=== PATIENT | male | born 1960 | race Hispanic/Latino ===

== ENCOUNTER → 2018-09-12 | Outpatient (CLI) | payer MEDICARE | END | disposition home or self-care (01) | LOC: RAH 10:49 | PROVIDERS: ATTEND Urology | DX: N43.3 Hydrocele, unspecified (principal) | CPT/HCPCS: 76870 ==

== ENCOUNTER 2019-10-13 17:24 | Inpatient (IN) | payer MEDICARE ==
[~2019-10-13] VITALS: Ht 167.6 cm; Wt 109.5 kg
[2019-10-13 17:52] LABS: ABG BASE EXCESS 7.5 mmol/L (-2.0-3.0); ABG HCO3 34.1 mmol/L (21.0-28.0); ABG OXYGEN SATURATION 98.1 % (95.0-99.0); ABG PCO2 55 mmHg (35-48)
[2019-10-13] MEDS ORDERED: CEFTRIAXONE SODIUM 1 GM ONE (18:12)
[2019-10-13] MEDS ORDERED: SODIUM CHLORIDE 0.9% 1000ML 1,000 ML IV ONE (18:12)
[2019-10-13] MEDS ORDERED: SODIUM CHLORIDE 0.9% 100 ML IV ONE (18:12)
[2019-10-13] MEDS ORDERED: ACETAMINOPHEN 325 MG TAB ONE (18:30)
[2019-10-13 18:36] LABS: BASOPHILS % (AUTO) 0.2 % (0.0-5.0); HEMATOCRIT 47.6 % (42-54); LYMPHOCYTES % (AUTO) 17.9 % (21.0-51.0); MEAN CORPUSCULAR HEMOGLOBIN 30.1 pg (27.0-33.0); MEAN CORPUSCULAR HGB CONC 33.6 g/dL (32.0-36.0); MEAN CORPUSCULAR VOLUME 89.5 fL (79-99); NEUTROPHILS % (AUTO) 71.7 % (40.0-77.0); PLATELET COUNT (AUTO) 176 K/uL (130-400); RED BLOOD CELL COUNT(AUTO) 5.32 MIL/uL (4.50-6.20); RED CELL DISTRIBUTION WIDTH 12.6 % (11.0-15.5); WHITE BLOOD COUNT (AUTO) 4.7 K/uL (4.8-10.8)
[2019-10-13 18:42] LABS: POTASSIUM 3.6 mmol/L (3.5-5.1)
[2019-10-13 18:46] LABS: ALBUMIN 3.1 g/dL (3.5-5.0); BILIRUBIN,TOTAL 0.9 mg/dL (0.2-1.0); INR 1.1 (0.85-1.15); PARTIAL THROMBOPLASTIN TIME 30.1 SEC (26.3-35.5); PROTHROMBIN TIME 11.8 SEC (9.6-11.6); TOTAL PROTEIN, SERUM 7.8 g/dL (6.0-8.3)
[2019-10-13 19:02] LABS: B-TYPE NATRIURETIC PEPTIDE < 5 pg/mL (0-100)
[2019-10-13 19:03] LABS: FERRITIN 302 ng/mL (30-400)
[2019-10-13] MEDS: SODIUM CHLORIDE IV SCH ×2 (22:23)
[2019-10-13] MEDS ORDERED: IOHEXOL-350 75 ML VIAL IV ONE (22:29)
[2019-10-13] MEDS ORDERED: MORPHINE SULFATE 4 MG/1ML SYG IV PRN (22:30)
[2019-10-13] MEDS ORDERED: ONDANSETRON HCL 4 MG/2 ML VIAL IV PRN (22:30)
[2019-10-13] MEDS ORDERED: ACETAMINOPHEN 325 MG TAB PO PRN ×2 (22:30)
[2019-10-13] MEDS ORDERED: SODIUM CHLORIDE 0.9% IV SCH (22:30)
[2019-10-13] MEDS ORDERED: LACTULOSE 20 GM/30 ML UDCUP PO PRN (22:30)
[2019-10-13] MEDS ORDERED: GUAIFENESIN-DM 200/20 MG 10 ML PO PRN (22:30)
[2019-10-13] MEDS ORDERED: ZOLPIDEM TARTRATE 5 MG TAB PO PRN (22:30)
[2019-10-13] MEDS ORDERED: MAG HYDROX/AL HYDROX/SIMETH ES 30 ML SUSP UDCUP PO PRN (22:30)
[2019-10-13] MEDS ORDERED: DIPHENHYDRAMINE HCL 25 MG CAPSULE PO PRN (22:30)
[2019-10-13] MEDS ORDERED: DEXAMETHASONE IV SCH (22:30)
[2019-10-13] MEDS ORDERED: ERGOCALCIFEROL (VITAMIN D2) 50,000 UNIT CAPSULE PO ONE (22:30)
[2019-10-13] MEDS ORDERED: ASCORBIC ACID 500 MG TAB ONE (23:08)
[2019-10-13] MEDS ORDERED: ERGOCALCIFEROL (VITAMIN D2) 50,000 UNIT CAPSULE ONE (23:08)
[2019-10-13] MEDS ORDERED: DEXAMETHASONE SOD PHOSPHATE 10MG/ML 1ML VIAL ONE (23:08)
[2019-10-13] MEDS ORDERED: BENZONATATE 100 MG CAPSULE PO ONE (23:09)
[2019-10-13] MEDS ORDERED: CEFEPIME HCL 2 GM VIAL ONE (23:09)
[2019-10-13] MEDS ORDERED: ACETYLCYSTEINE 600 MG CAPSULE ONE (23:09)
[2019-10-13] MEDS ORDERED: FAMOTIDINE/PF 20 MG/2 ML VIAL IV ONE (23:10)
[2019-10-13] MEDS ORDERED: AZITHROMYCIN 500MG+NS 250ML 250 ML IV ONE (23:10)
[2019-10-13] MEDS ORDERED: ZINC SULFATE 220 CAPSULE ONE (23:10)
[2019-10-13] MEDS ORDERED: ENOXAPARIN SODIUM 40 MG/0.4 ML SYRINGE SQ ONE (23:10)
[2019-10-13 23:53] LABS: BASOPHILS % (AUTO) 0.3 % (0.0-5.0); HEMATOCRIT 44.7 % (42-54); LYMPHOCYTES % (AUTO) 25.7 % (21.0-51.0); MEAN CORPUSCULAR HEMOGLOBIN 30.5 pg (27.0-33.0); MEAN CORPUSCULAR HGB CONC 33.1 g/dL (32.0-36.0); MONOCYTES % (AUTO) 8.4 % (3.0-13.0); NEUTROPHILS % (AUTO) 65.6 % (40.0-77.0); PLATELET COUNT (AUTO) 142 K/uL (130-400); RED BLOOD CELL COUNT(AUTO) 4.86 MIL/uL (4.50-6.20); RED CELL DISTRIBUTION WIDTH 12.7 % (11.0-15.5); WHITE BLOOD COUNT (AUTO) 3.9 K/uL (4.8-10.8)
[2019-10-14] VITALS (8 sets, daily range): BP systolic 116–152; BP diastolic 54–85
[2019-10-14 00:06] LABS: ALBUMIN 2.6 g/dL (3.5-5.0); CARBON DIOXIDE 37 mmol/L (21-32); CHLORIDE 102 mmol/L (101-111); CREATININE 1.1 mg/dL (0.5-1.5); GLOMERULAR FILTR. RATE CALC 73 mL/min (>60); GLUCOSE,RANDOM 136 mg/dL (70-105); POTASSIUM 3.4 mmol/L (3.5-5.1); SODIUM SERUM 142 mmol/L (136-145); UREA NITROGEN, BLOOD 18 mg/dL (7-18)
[2019-10-14 00:26] LABS: ALANINE AMINOTRANSFERASE 28 U/L (12-78); ASPARTATE AMINOTRANSFERASE 33 U/L (10-37); BILIRUBIN,TOTAL 0.7 mg/dL (0.2-1.0); CREATINE KINASE, TOTAL 176 U/L (21-232); MYOGLOBIN 199 ng/mL (10-92); PHOSPHORUS 2.9 mg/dL (2.5-4.9); TOTAL PROTEIN, SERUM 6.7 g/dL (6.0-8.3); TROPONIN I < 0.04 ng/mL (0.00-0.06)
--- NOTE | 2019-10-14 02:36 | NUR ---
Admitted to Room 417 Patient arrived to floor via stretcher. No distress noted. Nurse reported that his sats desated, as she was bringing to the floor (85%), so she increased oxygen from 2 liters to 4 liters via nasal cannula. Oxygen sats increased to 94%. Patient was transported to bed from stretcher and IV ABT and fluids infusing without difficulty. Denies any pain or discomfort at this time. Orientated to room and bed controls. Tele monitor applied per orders.
[2019-10-14] MEDS ORDERED: PHARMACY COMMUNICATION MISC SCH (05:00)
[2019-10-14] MEDS: INSULIN LISPRO 100 UNIT/ML 3ML SQ SCH ×4 (06:30→21:07)
[2019-10-14 07:40] LABS: HEMATOCRIT 43.5 % (42-54); MEAN CORPUSCULAR HEMOGLOBIN 30.4 pg (27.0-33.0); MEAN CORPUSCULAR HGB CONC 33.6 g/dL (32.0-36.0); MEAN CORPUSCULAR VOLUME 90.6 fL (79-99); MONOCYTES % (AUTO) 1.8 % (3.0-13.0); NEUTROPHILS % (AUTO) 84.8 % (40.0-77.0); PLATELET COUNT (AUTO) 143 K/uL (130-400); RED CELL DISTRIBUTION WIDTH 12.6 % (11.0-15.5); WHITE BLOOD COUNT (AUTO) 2.8 K/uL (4.8-10.8)
[2019-10-14] MEDS ORDERED: DEXAMETHASONE 10MG/ML 1ML VIAL 10 MG in SODIUM CHLORIDE 0.9% 50 ML IV SCH (07:45)
[2019-10-14 08:17] LABS: ALANINE AMINOTRANSFERASE 21 U/L (12-78); ALBUMIN 2.6 g/dL (3.5-5.0); ASPARTATE AMINOTRANSFERASE 32 U/L (10-37); BILIRUBIN,TOTAL 0.6 mg/dL (0.2-1.0); CARBON DIOXIDE 32 mmol/L (21-32); CHLORIDE 105 mmol/L (101-111); CREATININE 0.9 mg/dL (0.5-1.5); GLOMERULAR FILTR. RATE CALC 91 mL/min (>60); GLUCOSE,RANDOM 218 mg/dL (70-105); LACTATE DEHYDROGENASE 179 U/L (81-234); PHOSPHORUS 2.7 mg/dL (2.5-4.9); POTASSIUM 4.2 mmol/L (3.5-5.1); SODIUM SERUM 141 mmol/L (136-145); TOTAL PROTEIN, SERUM 6.6 g/dL (6.0-8.3); UREA NITROGEN, BLOOD 17 mg/dL (7-18)
[2019-10-14 08:23] LABS: BAND NEUTROPHILS % (MANUAL) 1 % (0-2); LYMPHOCYTES % (MANUAL) 10 % (22-44); MAN.DIFF COMMENT-IMPRESSION MANUAL DIFFERENTIAL; PLATELET MORPHOLOGY COMMENT ADEQUATE; SEGMENTED NEUTROPHILS % 89 % (40-70)
[2019-10-14] MEDS: ZINC SULFATE 220 CAPSULE PO SCH (09:00)
[2019-10-14] MEDS: ENOXAPARIN SODIUM 40 MG/0.4 ML SYRINGE SQ SCH (09:00)
[2019-10-14] MEDS: ACETYLCYSTEINE 600 MG CAPSULE PO SCH ×2 (09:00→20:36)
[2019-10-14] MEDS: ASCORBIC ACID 500 MG TAB PO SCH (09:00)
[2019-10-14] MEDS: BENZONATATE 100 MG CAPSULE PO SCH ×3 (09:00→20:36)
[2019-10-14 09:09] LABS: CREATINE KINASE, TOTAL 184 U/L (21-232); MYOGLOBIN 126 ng/mL (10-92); TROPONIN I < 0.04 ng/mL (0.00-0.06)
[2019-10-14] MEDS: FAMOTIDINE/PF 20 MG/2 ML VIAL IV SCH ×2 (10:58→20:36)
[2019-10-14] MEDS: CEFEPIME HCL 2 GM VIAL IVP SCH ×2 (11:03→23:52)
[2019-10-14] MEDS: SODIUM CHLORIDE IV SCH ×2 (11:03)
[2019-10-14] MEDS: PHARMACY COMMUNICATION MISC SCH ×4 (13:16→23:58)
[2019-10-14] MEDS ORDERED: COMPOUND IV REFRIGERATED 1 EACH IVSOLN MISC PRN (13:30)
[2019-10-14] MEDS ORDERED: REMDESIVIR (EUA) 520 200 MG in SODIUM CHLORIDE 0.9% 250 ML IV SCH (14:00)
[2019-10-14] MEDS ORDERED: REMDESIVIR (EUA) 520 200 MG in SODIUM CHLORIDE 0.9% 250 ML IV ONE (14:00)
[2019-10-14 15:10] LABS: CREATINE KINASE, TOTAL 151 U/L (21-232)
[2019-10-14] MEDS: SODIUM CHLORIDE 0.9% 1000ML 1,000 ML IV SCH ×2 (15:42→23:56)
[2019-10-14 15:52] LABS: MYOGLOBIN 122 ng/mL (10-92); TROPONIN I < 0.04 ng/mL (0.00-0.06)
--- NOTE | 2019-10-14 16:25 | NUR ---
INITIAL SW spoke to patient's spouse, Charlee Lazaro. Patient lives with spouse. He has no home services or DME. Patient is able to complete ADL's independently and drives. 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 PCP is Dr. Eren Garsia. Pharmacy is [facility] in [facility]. DCP is home. Addendum: 10/14/19 at 1627 by GWEN MCGRATH SS Amended: Links added.
[2019-10-14] MEDS: AZITHROMYCIN 500MG+NS 250ML 250 ML IV SCH (20:35)
--- NOTE | 2019-10-15 00:01 | NUR ---
IV infiltrated in left Forearm Patient was c/o his IV site burning. Assessed and it was red and tender to left forearm. Removed #18g IV needle that was intact. No further concerns at this time. He continues to have a #20g to right AC area, flushing well and without any s/sx of infiltration.
[2019-10-15] MEDS: PHARMACY COMMUNICATION MISC SCH (03:45)
[2019-10-15] MEDS: SODIUM CHLORIDE 0.9% 1000ML 1,000 ML IV SCH ×3 (04:37→18:25)
[2019-10-15 04:45] VITALS: BP 128/67
[2019-10-15] MEDS: INSULIN LISPRO 100 UNIT/ML 3ML SQ SCH ×5 (06:15→22:45)
[2019-10-15 06:49] LABS: HEMATOCRIT 41.4 % (42-54); LYMPHOCYTES % (AUTO) 11.3 % (21.0-51.0); MEAN CORPUSCULAR HEMOGLOBIN 30.2 pg (27.0-33.0); MEAN CORPUSCULAR HGB CONC 33.6 g/dL (32.0-36.0); MEAN CORPUSCULAR VOLUME 89.8 fL (79-99); MONOCYTES % (AUTO) 5.2 % (3.0-13.0); NEUTROPHILS % (AUTO) 83.1 % (40.0-77.0); PLATELET COUNT (AUTO) 161 K/uL (130-400); RED BLOOD CELL COUNT(AUTO) 4.61 MIL/uL (4.50-6.20); RED CELL DISTRIBUTION WIDTH 12.5 % (11.0-15.5); WHITE BLOOD COUNT (AUTO) 5.4 K/uL (4.8-10.8)
[2019-10-15 08:00] VITALS: BP 135/78
[2019-10-15 08:03] LABS: LACTATE DEHYDROGENASE 166 U/L (81-234)
[2019-10-15] MEDS: ENOXAPARIN SODIUM 40 MG/0.4 ML SYRINGE SQ SCH (09:16)
[2019-10-15] MEDS: ZINC SULFATE 220 CAPSULE PO SCH (09:16)
[2019-10-15] MEDS: BENZONATATE 100 MG CAPSULE PO SCH ×3 (09:16→20:22)
[2019-10-15] MEDS: FAMOTIDINE/PF 20 MG/2 ML VIAL IV SCH ×2 (09:16→20:22)
[2019-10-15] MEDS: ACETYLCYSTEINE 600 MG CAPSULE PO SCH ×2 (09:16→20:22)
[2019-10-15] MEDS: CEFEPIME HCL 2 GM VIAL IVP SCH ×2 (09:16→22:45)
[2019-10-15] MEDS: ASCORBIC ACID 500 MG TAB PO SCH (09:17)
[2019-10-15 11:30] VITALS: BP 133/76
[2019-10-15 13:09] LABS: ALBUMIN 2.4 g/dL (3.5-5.0); BILIRUBIN,TOTAL 0.4 mg/dL (0.2-1.0); CREATININE 0.9 mg/dL (0.5-1.5); MAGNESIUM 2.3 mg/dL (1.80-2.40); PHOSPHORUS 2.2 mg/dL (2.5-4.9); TOTAL PROTEIN, SERUM 6.3 g/dL (6.0-8.3)
[2019-10-15] MEDS ORDERED: PHARMACY COMMUNICATION MISC SCH (15:00)
[2019-10-15] MEDS: REMDESIVIR (EUA) 520 100 MG in SODIUM CHLORIDE 0.9% 250 ML IV SCH (15:00)
[2019-10-15 15:30] VITALS: BP 130/80
[2019-10-15] MEDS: AZITHROMYCIN 500MG+NS 250ML 250 ML IV SCH (20:22)
[2019-10-15 21:39] VITALS: BP 153/70
[2019-10-16] MEDS: SODIUM CHLORIDE 0.9% 1000ML 1,000 ML IV SCH ×2 (01:05→08:05)
--- NOTE | 2019-10-16 03:36 | NUR ---
Patient accidentally pulled IV out, while sleeping Patient called me to his room to assess his IV. Noted blood on bed covers and gown. IV, #20g catheter, was out of the vein of his right AC. Removed and cleaned site. Restarted another #20g IV in patient's right hand. Tolerated it well. No further c/o's or concerns at this time. Continues to be receiving his NS at 150mls/hr.
[2019-10-16 04:30] VITALS: BP 142/87
[2019-10-16] MEDS: PHARMACY COMMUNICATION MISC SCH (05:43)
[2019-10-16 06:26] LABS: LACTATE DEHYDROGENASE 181 U/L (81-234)
[2019-10-16] MEDS: INSULIN LISPRO 100 UNIT/ML 3ML SQ SCH ×4 (07:30→22:25)
[2019-10-16 08:00] VITALS: BP 148/78
[2019-10-16] MEDS: CEFEPIME HCL 2 GM VIAL IVP SCH (10:18)
[2019-10-16] MEDS: ASCORBIC ACID 500 MG TAB PO SCH (10:19)
[2019-10-16] MEDS: ACETYLCYSTEINE 600 MG CAPSULE PO SCH ×2 (10:19→20:09)
[2019-10-16] MEDS: FAMOTIDINE/PF 20 MG/2 ML VIAL IV SCH ×2 (10:19→20:09)
[2019-10-16] MEDS: DEXAMETHASONE SOD PHOSPHATE 10MG/ML 1ML VIAL IV SCH (10:19)
[2019-10-16] MEDS: ZINC SULFATE 220 CAPSULE PO SCH (10:19)
[2019-10-16] MEDS: TAMSULOSIN HCL 0.4 MG CAP.ER.24H PO SCH (10:19)
[2019-10-16] MEDS: BENZONATATE 100 MG CAPSULE PO SCH ×3 (10:19→20:09)
[2019-10-16] MEDS: ENOXAPARIN SODIUM 40 MG/0.4 ML SYRINGE SQ SCH (10:20)
[2019-10-16 11:28] LABS: ALBUMIN 2.6 g/dL (3.5-5.0); BILIRUBIN,DIRECT 0.1 mg/dL (0.0-0.3); BILIRUBIN,TOTAL 0.4 mg/dL (0.2-1.0); CREATININE 0.9 mg/dL (0.5-1.5); POTASSIUM 3.6 mmol/L (3.5-5.1); TOTAL PROTEIN, SERUM 6.3 g/dL (6.0-8.3)
[2019-10-16 11:30] VITALS: BP 175/86
[2019-10-16] MEDS ORDERED: LOPERAMIDE HCL 2 MG CAP PO SCH (12:00)
[2019-10-16] MEDS ORDERED: LOPERAMIDE HCL 2 MG CAP PO PRN (12:00)
[2019-10-16] MEDS: REMDESIVIR (EUA) 520 100 MG in SODIUM CHLORIDE 0.9% 250 ML IV SCH (13:30)
[2019-10-16 15:30] VITALS: BP 173/99
[2019-10-16] MEDS: HYDRALAZINE HCL 20 MG/ML VIAL IV PRN (17:25)
[2019-10-16] MEDS ORDERED: HYDRALAZINE HCL 20 MG/ML VIAL IV PRN (17:45)
[2019-10-16 21:40] VITALS: BP 152/100
--- NOTE | 2019-10-16 22:48 | NUR ---
Urine sample collected from patient Patient was able to give me a clean catch urine sample and it was sent to the lab. Denies and problems with burning at this time. Did say that he has an enlarged prostate and it was hard to urinate a lot at a time.
[2019-10-16 22:50] LABS: APPEARANCE,URINE Clear (CLEAR); BILIRUBIN,URINE Negative (NEGATIVE); COLOR,URINE Yellow (YELLOW); GLUCOSE, URINE (UA) 500 mg/dL (NEGATIVE); KETONES,URINE Negative (NEGATIVE); LEUKOCYTE ESTERASE ,URINE Negative (NEGATIVE); NITRATE,URINE Negative (NEGATIVE); OCCULT BLOOD,URINE Negative (NEGATIVE); PROTEIN,URINE Trace mg/dL (NEGATIVE)
[2019-10-16 23:01] LABS: BACTERIA,URINE Rare /HPF (None Seen); MUCUS,URINE Few LPF (None Seen); SQUAMOUS EPITHELIAL CELL,UR 0-2 /HPF (0-2); WBC,URINE 0-1 /HPF (0-1)
[2019-10-17 00:22] VITALS: BP 153/92
--- NOTE | 2019-10-17 03:23 | NUR ---
Patient pulled out IV, while in the bathroom Patient reported that he pulled out his IV when he was in the bathroom. When I entered the room, he was back in bed with a wash cloth around his right hand and it was bloody. The IV catheter tip was out of the vein, intact, and was discarded in the sharp bin. I replaced a new 20g needle in the patient's right antecubital area. Patent and flushes well with good blood return.
[2019-10-17 04:05] VITALS: BP 155/87
[2019-10-17 05:18] LABS: HEMATOCRIT 42.3 % (42-54); MEAN CORPUSCULAR HEMOGLOBIN 29.3 pg (27.0-33.0); MEAN CORPUSCULAR HGB CONC 33.3 g/dL (32.0-36.0); MEAN CORPUSCULAR VOLUME 87.9 fL (79-99); MONOCYTES % (AUTO) 7.8 % (3.0-13.0); NEUTROPHILS % (AUTO) 79.8 % (40.0-77.0); PLATELET COUNT (AUTO) 178 K/uL (130-400); RED BLOOD CELL COUNT(AUTO) 4.81 MIL/uL (4.50-6.20); RED CELL DISTRIBUTION WIDTH 12.4 % (11.0-15.5)
[2019-10-17] MEDS: PHARMACY COMMUNICATION MISC SCH (05:24)
[2019-10-17 05:46] LABS: ALBUMIN 2.4 g/dL (3.5-5.0); BILIRUBIN,TOTAL 0.5 mg/dL (0.2-1.0); POTASSIUM 3.7 mmol/L (3.5-5.1); TOTAL PROTEIN, SERUM 6.4 g/dL (6.0-8.3)
[2019-10-17] MEDS: INSULIN LISPRO 100 UNIT/ML 3ML SQ SCH ×4 (06:41→20:56)
[2019-10-17 08:00] VITALS: BP 173/89
[2019-10-17 11:30] VITALS: BP 146/79
[2019-10-17] MEDS: DEXAMETHASONE SOD PHOSPHATE 10MG/ML 1ML VIAL IV SCH (12:13)
[2019-10-17] MEDS: ENOXAPARIN SODIUM 40 MG/0.4 ML SYRINGE SQ SCH (12:14)
[2019-10-17] MEDS: BENZONATATE 100 MG CAPSULE PO SCH ×3 (12:14→20:53)
[2019-10-17] MEDS: ZINC SULFATE 220 CAPSULE PO SCH (12:15)
[2019-10-17] MEDS: TAMSULOSIN HCL 0.4 MG CAP.ER.24H PO SCH (12:15)
[2019-10-17] MEDS: FAMOTIDINE/PF 20 MG/2 ML VIAL IV SCH ×2 (12:15→20:42)
[2019-10-17] MEDS: ASCORBIC ACID 500 MG TAB PO SCH (12:15)
[2019-10-17] MEDS: ACETYLCYSTEINE 20% 200MG/ML 4ML VIAL PO SCH ×2 (12:16→20:53)
[2019-10-17] MEDS ORDERED: LORAZEPAM 1 MG TABLET PO PRN (13:45)
[2019-10-17] MEDS: REMDESIVIR (EUA) 520 100 MG in SODIUM CHLORIDE 0.9% 250 ML IV SCH (14:32)
[2019-10-17 15:30] VITALS: BP 170/90
[2019-10-17] MEDS: HYDRALAZINE HCL 20 MG/ML VIAL IV PRN (17:20)
[2019-10-17 20:26] VITALS: BP 143/75
[2019-10-17] MEDS ORDERED: SIMVASTATIN 10 MG TABLET PO SCH (21:00)
[2019-10-18 00:22] VITALS: BP 156/88
[2019-10-18 03:41] VITALS: BP 146/84
[2019-10-18] MEDS: PHARMACY COMMUNICATION MISC SCH (05:30)
[2019-10-18 05:37] LABS: BASOPHILS % (AUTO) 0.2 % (0.0-5.0); HEMATOCRIT 43.6 % (42-54); LYMPHOCYTES % (AUTO) 11.7 % (21.0-51.0); MEAN CORPUSCULAR HGB CONC 33.9 g/dL (32.0-36.0); MEAN CORPUSCULAR VOLUME 88.4 fL (79-99); NEUTROPHILS % (AUTO) 79.9 % (40.0-77.0); PLATELET COUNT (AUTO) 179 K/uL (130-400); RED BLOOD CELL COUNT(AUTO) 4.93 MIL/uL (4.50-6.20); RED CELL DISTRIBUTION WIDTH 12.5 % (11.0-15.5); WHITE BLOOD COUNT (AUTO) 5.2 K/uL (4.8-10.8)
[2019-10-18 05:54] LABS: ALBUMIN 2.6 g/dL (3.5-5.0); BILIRUBIN,TOTAL 0.7 mg/dL (0.2-1.0); CRP QUANTITATIVE 16.7 mg/L (0.00-9.0); POTASSIUM 3.4 mmol/L (3.5-5.1); TOTAL PROTEIN, SERUM 6.2 g/dL (6.0-8.3)
[2019-10-18] MEDS: INSULIN LISPRO 100 UNIT/ML 3ML SQ SCH ×2 (06:59→13:05)
[2019-10-18 08:00] VITALS: BP 145/87
[2019-10-18] MEDS: ACETYLCYSTEINE 20% 200MG/ML 4ML VIAL PO SCH (08:52)
[2019-10-18] MEDS: ZINC SULFATE 220 CAPSULE PO SCH (08:52)
[2019-10-18] MEDS: ASCORBIC ACID 500 MG TAB PO SCH (08:52)
[2019-10-18] MEDS: TAMSULOSIN HCL 0.4 MG CAP.ER.24H PO SCH (08:52)
[2019-10-18] MEDS: BENZONATATE 100 MG CAPSULE PO SCH ×2 (08:52→14:35)
[2019-10-18] MEDS: ENOXAPARIN SODIUM 40 MG/0.4 ML SYRINGE SQ SCH (08:57)
[2019-10-18] MEDS: FAMOTIDINE/PF 20 MG/2 ML VIAL IV SCH (08:57)
[2019-10-18] MEDS ORDERED: LISINOPRIL 20 MG TABLET PO SCH (09:00)
[2019-10-18] MEDS ORDERED: HYDROCHLOROTHIAZIDE 25 MG TABLET PO SCH (09:00)
[2019-10-18] MEDS: DEXAMETHASONE SOD PHOSPHATE 10MG/ML 1ML VIAL IV SCH (09:33)
[2019-10-18 11:56] VITALS: BP 147/91
[2019-10-18] MEDS ORDERED: DOXY100T21 PO (13:21)
[2019-10-18] MEDS ORDERED: BENZ-39 PO (13:21)
[2019-10-18] MEDS ORDERED: ALBU8.5H8 IH (13:21)
[2019-10-18] MEDS ORDERED: ZINC220C6 PO (13:21)
[2019-10-18] MEDS ORDERED: DEXA6TAB7 PO (13:21)
[2019-10-18] MEDS ORDERED: ASCO500T10 PO (13:21)
[2019-10-18] MEDS ORDERED: REMDESIVIR (EUA) 520 100 MG in SODIUM CHLORIDE 0.9% 250 ML IV SCH (14:00)
[2019-10-18 16:00] VITALS: BP 143/88
--- NOTE | 2019-10-18 16:01 | NUR ---
DISCHARGE HOME WITH OUR O2. DID CONSENT WITH SPOUSE RICHARD, EXPLAINED THAT THE TANK IS TO USE TONIGHT, THE CONCENTRATOR IS FOR HOME UNTIL HIS OXYGEN COMES IN FROM THE INSURANCE SHE VERBALIZED UNDERSTANDING. GARY MERINO TOOK THE TANK / CONCENTRATOR TO THE FLOOR, THE RN WAS NOTIFIED ALSO Addendum: 10/18/19 at 1606 by CYNTHIA SHER RN CM Amended: Links added.
--- NOTE | 2019-10-18 17:32 | NUR ---
Patient cleared by primary team for DC home. VSS and no complaints of pain or discomfort. Patient sent home with Home O2 and concentrator. DC information reviewed with patient and he verbalized understanding. Patient escorted to car by tea blender and will be taken home by .
== END 2019-10-18 18:10 | disposition home or self-care (01) | DRG 177 ==
LOC: EDH 17:24 → EDHIP 22:23 → 4CH 10-14 01:36
PROVIDERS: ADMIT Hospitalist; ATTEND Hospitalist
PROC: XW033E5 Introduction of Remdesivir Anti-infective into Peripheral Vein, Percutaneous Approach, New Technology Group 5 (ICD-10-PCS; principal; 2019-10-13)
PROC: XW13325 Transfusion of Convalescent Plasma (Nonautologous) into Peripheral Vein, Percutaneous Approach, New Technology Group 5 (ICD-10-PCS; 2019-10-13)
DX: U07.1 COVID-19 (principal); J96.01 Acute respiratory failure with hypoxia; J12.89 Other viral pneumonia; I10 Essential (primary) hypertension; E11.9 Type 2 diabetes mellitus without complications; N40.0 Benign prostatic hyperplasia without lower urinary tract symptoms
CPT/HCPCS: 36415; 36430; 36600; 71045; 71275; 80048; 80053; 80076; 81001; 82435; 82550; 82728; 82803; 82947; 82948; 83605; 83615; 83735; 83874; 83880; 84100; 84132; 84145; 84295; 84484; 85018; 85025; 85378; 85610; 85730; 86140; 86850; 86900; 86901; 86927; 87040; 87088; 87493; 93005; 94760; G0378; J0360; J0456; J0692; J0696; J1100; J1650; J3490; J7030; J7050; J7608; Q9967